=== PATIENT | female | born 1940 | race Caucasian/White ===

== ENCOUNTER → 2017-11-30 | Day surgery (SDC) | payer MEDICARE, BC ==
[~2017-11-30] MED LIST: Lactated Ringers 1,000 ML IV SCH; Propofol 200 MG/20 ML SDV IV ONE
--- NOTE | 2017-11-30 15:12 | OR ---
DATE OF OPERATION: 11/30/2017 PREOPERATIVE DIAGNOSIS: MELENA, ABDOMINAL PAIN. POSTOPERATIVE DIAGNOSIS: MELENA, ABDOMINAL PAIN. SURGEON: Edouard Joseph MD PROCEDURE: FULL-LENGTH COLONOSCOPY. 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 COMPLICATIONS: None. SPECIMEN: None. FINDINGS: 1. Full-length colonoscopy without identifiable etiology of the patient's melena. 2. Extremely poor prep right colon. RECOMMENDATIONS: Given the patient's symptoms and history of alcohol use, I would recommend EGD for further delineation of the patient's melena. INDICATIONS: The patient apparently has been having some issues with melanotic stools and some vague abdominal pain with a question of whether she had some bright red blood as well on her toilet paper. Ultimately, she was sent for a colonoscopy as she had been over 20 years since her last. DESCRIPTION OF PROCEDURE: The patient was prepped and draped, placed in the left lateral decubitus position. A lubricated Olympus colonoscope was inserted and ultimately advanced to the cecum. The patient was extremely redundant colon and it was very poor tone, it was difficult to advance through her, but we were able to get over to the right colon and visualized the ileocecal valve and appendiceal orifice. The bowel prep on the right colon was extremely poor, I had irrigated multiple times just to make sure that we were in the cecum, I could not get most of the stool from that area out as it was too thick and this went up into the proximal to mid ascending colon as well, but no gross abnormalities could be visualized, although it is not definitive in that area. Once we got up near the hepatic flexure, bowel prep became much better. There was still presence of stool most of this could be irrigated proximally down the colon, so where we could visualize well. Throughout the entire length of the colon, I could find no obvious polyps, masses, ulceration, or bleeding sites. There were no vascular abnormalities or signs of colitis. The left colon had no signs of significant diverticula. The rectal vault was benign. Retroflexion of the scope in the rectum did confirm a significant amount of perianal hemorrhoidal disease without any active bleeding. Air was suctioned. Scope was removed without complication. SEBASTIEN/KO /[id number] Cc: Wallace Cantu, TIMUR
== END ==
LOC: CC.SDS 11:21
PROVIDERS: ATTEND Family Medicine
DX: K92.1 Melena (principal); R10.9 Unspecified abdominal pain
CPT/HCPCS: J7120